=== PATIENT | male | born 1990 | race Hispanic/Latino ===

== ENCOUNTER 2019-11-17 02:33 | Emergency (ER) | payer SELFPAY ==
[2019-11-17] MEDS ORDERED: Piperacillin/Tazobactam 3.375 GM VIAL ONE (03:05)
--- NOTE | 2019-11-17 07:56 | CT ---
Emergent after hours CT abdomen and pelvis with IV contrast HISTORY: Intermittent abdominal pain with onset of symptoms tonight. Patient reports constant pain in right up per quadrant. Associated nausea and vomiting. IMPRESSION: 1. No acute findings are seen in the abdomen or pelvis. 2. The appendix is not visualized, but there are no secondary signs to suggest appendicitis. 3. Small hiatal hernia. 4. Nonspecific mildly prominent fluid-filled loops of small bowel. No mesenteric edema is present. 5. Mesenteric lymph nodes at the upper limits of normal but also nonspecific. 6. Findings are agreement with preliminary report by [facility].
--- NOTE | 2019-11-17 08:07 | ULT ---
PRELIMINARY REPORT/[facility]/EMERGENCY AFTER HOURS PROCEDURE: EXAM: US Abdomen Limited, Right Upper Quadrant. CLINICAL HISTORY: RUQ pain, N/V TECHNIQUE: Real-time ultrasound of the right upper quadrant with image documentation. COMPARISON: None provided. FINDINGS: LIVER: Unremarkable. Measures 17.2 cm GALLBLADDER: No gallstone. No wall thickening. No pericholecystic fluid. COMMON BILE DUCT: No dilation. Measures 3.6 mm PANCREAS: Partially obscured by overlying bowel gas. RIGHT KIDNEY: Unremarkable. No hydronephrosis. Measures 10.6 cm IMPRESSION: Unremarkable right upper quadrant ultrasound. ELECTRONICALLY SIGNED BY: Jason Fisher MD Nov 17, 2019 3:22:43 AM CDT This report is intended for review by the ordering physician only, in accordance of law. If you recei ve this report in error, please call [facility] at [phone]. FINAL REPORT GALLBLADDER ULTRASOUND: HISTORY: Right upper quadrant pain. COMPARISON: None. FINDINGS: Head of the pancreas has a normal echotexture. Remainder of pancreas obscured by bowel gas. Hepatic p arenchyma has a normal echotexture. No hepatic masses or intrahepatic dilatation. Contour of the hepa tic margin is maintained. Right hepatic lobe measures 17.1 cm. Patent portal vein. No evidence of hyd ronephrosis with regards to the right kidney. Common bile duct diameter is 0.36 cm. No sonographic ev idence of cholelithiasis, gallbladder wall thickening, or pericholecystic fluid. Negative Murguia's si gn. IMPRESSION: This report is in agreement with the initial report by [facility]. No sonographic evidence of c holelithiasis or cholecystitis. POS: CET
[2019-11-17] MEDS ORDERED: Iopamidol 370 76% 100 ML VIAL ONE (13:50)
== END 2019-11-17 05:21 | disposition home or self-care (01) ==
LOC: ERS 02:33
DX: K52.9 Noninfective gastroenteritis and colitis, unspecified (principal); F17.210 Nicotine dependence, cigarettes, uncomplicated
CPT/HCPCS: 36415; 74177; 76705; 83605; 87040; 96360; 96361; J2543; Q9967